=== PATIENT | male | born 1930 | race Caucasian/White ===

== ENCOUNTER 2018-11-19 14:39 | Inpatient (IN) ==
[2018-11-19] MEDS ORDERED: MAGNESIUM HYDROXIDE SUSP 30 ML UDC PO PRN (15:08)
[2018-11-19] MEDS ORDERED: BISACODYL 10 MG SUPP PR PRN (15:08)
[2018-11-19] MEDS ORDERED: NALOXONE HCL 0.4 MG/1 ML VIAL/CARP IV PRN (15:08)
[2018-11-19] MEDS ORDERED: ONDANSETRON INJ 2 MG/ML 2 ML VIAL IV PRN (15:08)
[2018-11-19] MEDS ORDERED: OXYCODONE HCL IR 5 MG TAB (IMMEDIATE RELEASE) PO PRN (15:08)
--- NOTE | 2018-11-19 16:05 | XRay Report ---
SINGLE VIEW CHEST CLINICAL HISTORY: Preoperative examination FINDINGS: 2 AP, portable, upright chest radiographs are obtained. No prior studies are available for comparison at the time of dictation. The examination is degraded by portable technique and patient ro tation. The heart is mildly enlarged end there is atherosclerotic calcification of the thoracic aort a. The pulmonary vasculature is noncongested. Nonspecific interstitial thickening is likely chronic. No airspace consolidation or large pleural effusion is identified. No pneumothorax is seen. The skele venessa structures are osteopenic. The bony thorax is grossly intact. Degenerative change and scoliosis a re noted in the thoracic spine. IMPRESSION: Mild cardiac enlargement with no active disease in the chest. Electronically signed by: Alfonso Partida M.D. 11/19/2018 4:03 PM
[2018-11-19] MEDS: LACTATED RINGER'S 1,000 ML IV SCH (17:13)
[2018-11-19 17:14] LABS: Basophils # (auto) 0.03 K/uL (0-0.2); Basophils % (auto) 0.7 %; Eosinophils # (auto) 0.07 K/uL (0-0.5); Eosinophils % (auto) 1.5 %; Hematocrit (blood only) 39.1 % (42-52); Hemoglobin 13.3 g/dL (14.0-18.0); Lymphocytes # (auto) 0.83 K/uL (1.2-3.4); Lymphocytes % (auto) 18.2 %; Mean Corpuscular Volume 95.8 fL (80-100); Mean Platelet Volume 9.7 fL (7.4-10.4); Monocytes # (auto) 0.51 K/uL (0.11-0.59); Monocytes % (auto) 11.2 %; Neutrophils # (auto) 3.13 K/uL (1.4-6.5); Neutrophils % (auto) 68.4 %; Platelet Count 188 K/uL (130-400); RDW Coefficient of Variation 12.9 % (11.5-14.5); RDW Standard Deviation 45.1 fL (36.4-46.3); Red Blood Count 4.08 M/uL (4.7-6.1); White Blood Count 4.57 K/uL (4.8-10.8)
--- NOTE | 2018-11-19 17:14 | Hospitalist Consultation ---
Date of Consultation November 19, 2018 Assessment & Plan (1) SVT (supraventricular tachycardia): Patient claims about angioplasty 30 years ago but when he really talks about was his heart matias went off to the races he was placed on verapamil and since that time is never had a problem since. Claims to still be taking verapamil at this point in time we will continue this medication He denies anginal heart failure symptoms His RCRI is 3.9% which is as low as it could be given his age, there is no contraindication to progressing toward surgery for surgical hip repair (2) Depressed: Patient typically takes Effexor and Remeron for his depression is to be maintained also for his anxiety (3) Constipation: Patient typically is constipated on a normal week only having a bowel movement every 3 to days we will institute Senokot therapy and offer him milk of magnesia when needed History of Present Illness Attending Physician: Pipe Gomez MD History of Present Illness Patient is admitted preoperatively for repair of a hip fracture left hip. Reportedly approximately 6 weeks ago the patient slipped while pushing a lawn roller and sustained pain in his leg. He then walked around his painful leg for approximately 6 weeks during that time we did a x-rays by his primary care physician and was referred to a surgeon and do boys were told him he should try to live with it to avoid perioperative risk given his age. Patient sought second opinion with Dr. Gomez who is agreeable to repair the patient's hip. Patient is fairly healthy for his age. States many years ago he had a rapid heartbeat was given verapamil and since that time is been very good condition otherwise he is no shortness of breath and lay flat at night does not have easy bruising or bleeding does not get significantly dyspneic with exertion his biggest problem seems to revolve around some depression and anxiety for which she is treats these with Remeron and Effexor Allergies Allergy/AdvReac Type Severity Reaction Status Date / Time citalopram [From Celexa] AdvReac Shakiness Verified 11/19/18 15:43 Patient History Medical History Constipation Depressed SVT (supraventricular tachycardia) Family History Mother Depression Social History Preferred Language: Ethiopian Communication Ability: Effective Beliefs That Will Affect Care: None Current Living Situation: Spouse Other Information That Helps Us Care for You: No Feels Safe at Home: Yes Safety Concerns: Feels Safe At This Time Smoking Status: Former smoker Hx Alcohol Use: Yes Alcohol type: wine Hx Substance Use: No Review of Systems Review of Systems: ROS: well nourished well developed. Patient is thin but appears healthy No double vision blurry vision No problems with speech or swallowing No palpitations, chest pain or pressure No Wheezing or breathing issues No abdominal pain nausea vomiting diarrhea changes in appetite or weight No burning urine urine frequency or changes in color focal left leg pain more distal in his femur, worse with weightbearing or walking No skin rashes or oral lesions No unusual bruising or bleeding is of a bruise on his left hand which he says is from working at home No focused back pain or numbness or loss of strength No changes in memory or confusion Physical Exam Physical Exam: The patient appeared well nourished and normally developed. Vital signs as documented. Head exam is unremarkable. normocephalic, atraumatic Neck is without jugular venous distension, thyromegaly, or lymphademopathy Lungs are clear to auscultation and percussion. Cardiac exam reveals Rhythm is regular. First and second heart sounds normal. Abdominal exam reveals normal bowel sounds, no masses, no organomegaly Extremities are nonedematous and both pedal pulses are present he does not have any shortening or rotation he does have pain to external rotation of his left hip Neurologic exam is A&Ox3, no focal deficits, strength is equal bilateral Psychologically seems neither anxious or depressed although is very open to discussing his anxiety and depression Skin is warm / Dry Results & Data Vital Signs (Past 12 Hours) Vital Signs Pulse Resp BP Pulse Ox 11/19/18 15:28 86 18 157/77 H 95 Chest x-rays only with mild cardiomegaly EKG shows right bundle branch block
[2018-11-19 17:29] LABS: INR 1.1 (0.9-1.1); Prothrombin Time 10.9 Seconds (9.0-12.0)
[2018-11-19 17:32] LABS: Albumin Level 3.7 gm/dl (3.4-5.0); BUN Creatinine Ratio 18.1 (10-20); Creatinine Clr Calc Pharmacy 41.5 ml/min; Est GFR (African American) 63.9; Est GFR (Non-African American) 55.2; Potassium 4.4 mmol/L (3.5-5.1)
[2018-11-19 17:35] LABS: Bilirubin,Total 0.4 mg/dl (0.2-1); Globulin 3.7 gm/dl (2.5-4.0); Total Protein 7.4 gm/dl (6.4-8.2)
[2018-11-19] MEDS ORDERED: SODIUM CHLORIDE 0.65% NA SOLN 45 ML (OCEAN) PRN (18:34)
--- NOTE | 2018-11-19 19:23 | Anesthesiology Consultation ---
Date of Service November 19, 2018 Patient is amenable to spinal anesthetic Assessment & Plan (1) Encounter for pre-operative examination: Chart Review Chart Review: Acceptable Risk for Surgery and Patient NOT seen in Pre Admission Testing Consults Requested none History Surgery Operation Date: 11/20/18 14:00 Proposed Procedures p Bipolar Hip Prosthesis - Pipe Gomez MD Height/Weight Height: 6 ft Weight: 66.6 kg Allergies Allergy/AdvReac Type Severity Reaction Status Date / Time citalopram [From Celexa] AdvReac Shakiness Verified 11/19/18 15:43 Medications Active Medications Generic Name Dose Route Start Last Admin Trade Name Freq PRN Reason Stop Dose Admin Lactated Ringer's 1,000 mls @ 80 mls/hr 11/19/18 15:15 11/19/18 17:13 Lr IV 12/19/18 15:14 80 mls/hr .[id number] BENITO Administration Past Medical History Medical History Constipation Depressed SVT (supraventricular tachycardia) Exercise / Class Metabolic Activity II 4-5 Yardwork/Stairs/Walk up hill (Patient injured himself mowing lawn) Past Family History Family History Mother Depression Past Anesthesia History No Hx of Anesthesia Complications History of PONV No Hx of PONV Social History Smoking Status: Former smoker Hx Alcohol Use: Yes Alcohol type: wine alcohol intake frequency: a few times a week Hx Substance Use: No Physical Exam Vital Signs Last Vital Signs Pulse 86 11/19/18 15:28 Resp 18 11/19/18 15:28 BP 157/77 H 11/19/18 15:28 Pulse Ox 95 11/19/18 15:28 ENMT Mouth: + dentures (Full upper, partial lower); no dentition abnormality Thyromental Distance: > or= 3.5 Finger Breadths Mallampati Class: II Neck normal visual inspection and + limited neck extension (mildly limited extension. no pain) Respiratory normal respiratory effort Auscultation: lungs clear to auscultation bilaterally Cardiovascular Rate/Rhythm: regular rate and regular rhythm Neurologic moves all extremities Psychiatric Orientation: alert Testing Laboratory Results Laboratory Tests 11/19/18 11/19/18 11/19/18 17:01 17:01 17:01 WBC 4.57 L Hgb 13.3 L Hct 39.1 L Plt Count 188 PT 10.9 INR 1.1 APTT 27.0 Sodium 139 Potassium 4.4 Chloride 104 Carbon Dioxide 33 H BUN 21 H Creatinine 1.18 Glucose 73 Electrocardiogram Date: 11/19/18 Findings: + NSR @ and + RBBB Chest X-Ray Date: 11/19/18 Findings: + NAD and + cardiomegaly (mild)
[2018-11-19] MEDS ORDERED: DOCUSATE SODIUM/SENNA 50/8.6MG TAB PO SCH (21:00)
--- NOTE | 2018-11-19 21:22 | History and Physical Report ---
DATE OF ADMISSION: 11/19/2018 CHIEF COMPLAINT: Left hip pain, discomfort, and inability to ambulate. HISTORY OF PRESENT ILLNESS: The patient is an 88-year-old gentleman from [place], who presents for evaluation and treatment of his left hip. He injured his left leg just about 6 weeks ago. He was using the side of his leg to move a lawnmower and kind of twisted and bent it awkwardly and he has had pain since then. He describes it has gotten worse over time. It took him a while and he eventually saw his medical doctor who did an x-ray which showed a femoral neck fracture. This was just about a week and a half to 2 weeks ago. He then was referred to an orthopedist and discussed operative and nonoperative treatment. He comes in today for a second opinion. He is now a little over 6 weeks out from his injury. The pain is actually just getting worse. He has not been able to walk and he has been using a walker to get around. No preexisting hip pain. He previously walked independently. PAST MEDICAL HISTORY: Significant for: 1. Depression. 2. Coronary artery disease status post angioplasty 30 years ago and just on aspirin. PAST SURGICAL HISTORY: Include angioplasty. ALLERGIES: None. CURRENT MEDICINES: 1. Verapamil SR 240 mg a day. 2. Mirtazapine 15 mg. 3. Venlafaxine 150 mg. 4. Vitamin D 25 mg. 5. Centrum Silver. 6. Ecotrin 162 mg a day. SOCIAL HISTORY: Significant for an 88-year-old gentleman. He is from [place]. He is and comes with his and daughter today. Rare alcohol intake. Does not smoke. FAMILY HISTORY: Significant for heart disease and bowel cancer. REVIEW OF SYSTEMS: Negative for diabetes, neurologic problems, vascular problems, bleeding disorders. No chest pain, no shortness of breath. No problems since his angioplasty 3 years ago. No history of DVT or PE. PHYSICAL EXAMINATION: GENERAL: Reveals he is a pleasant, thin, elderly male. Looks to be in reasonably good health. He is awake, alert, and oriented. HEENT: Benign. NECK: Supple. No lymphadenopathy. LUNGS: Clear to auscultation. HEART: Regular rate and rhythm. ABDOMEN: Soft, nontender, nondistended. EXTREMITIES: Grossly neurovascularly intact except as follows: Examination of the left lower extremity reveals a patient who can barely walk with the use of his walker. His left leg is significantly shortened about 2 cm and slightly externally rotated. He is neurologically intact. He has got no knee effusion. X-RAYS: We did review his x-rays from the outside dated 11/06/2018. It shows a slightly displaced femoral neck fracture and a bit of varus. Minimal arthritic change otherwise. We repeated films today which show further displacement of the femoral neck fracture. Now it is significantly displaced with malalignment. Diffuse osteopenia. Minimal arthritic change. ASSESSMENT: This is an 88-year-old gentleman relatively healthy with a displaced femoral neck fracture 6 weeks old. This is not going to heal and not going to do well. It is significantly displaced. No preexisting arthritis. PLAN: We talked about treatment options. The risks and benefits of conservative versus operative intervention were explained and he would really like to proceed with surgical treatment. We are going to take him to the operating room and do a left cemented bipolar hip arthroplasty. I think with his age and underlying health and some degree of little spasticity, I think total hip replacement would be a significant risk for instability. We are going to proceed with a bipolar hip arthroplasty. The risks and benefits of this procedure were explained to the patient including, but not limited to, DVT, PE, , infection, neurological injury, vascular injury, bleeding problem, pain, limited range of motion, stiffness, failure to relieve symptoms, incomplete relief of symptoms, need for further surgery in the future, fracture, leg length inequality, nerve palsy, etc. They understand and desire to proceed. Informed consent was obtained. I did tell him he is at increased risk of forming a nerve palsy due to his short 6-week duration and shortened leg. We will do the best we can to make his leg lengths equal. We are going to admit him to the hospital and get the hospitalist to see him and make sure he is cleared. We will plan on doing this tomorrow. In the meantime, we will do DVT prophylaxis including thigh-high TEDs and SCDs. We will put him on a baby aspirin postop twice a day.
[2018-11-19] MEDS: MIRTAZAPINE TAB 15 MG TAB PO SCH (22:08)
[2018-11-20] MEDS: ACETAMINOPHEN 325 MG TAB PO PRN (01:43)
[2018-11-20] MEDS: LACTATED RINGER'S 1,000 ML IV SCH ×2 (05:10→17:57)
[2018-11-20] MEDS ORDERED: CEFAZOLIN 2000MG 2,000 MG/15 ML SYR IV SCH (06:00)
[2018-11-20] MEDS: VENLAFAXINE HCL XR 150 MG CAPXR PO SCH (08:41)
[2018-11-20] MEDS: VERAPAMIL HCL 240 MG TABCR PO SCH (08:42)
--- NOTE | 2018-11-20 08:47 | History & Physical Bridge Note ---
Date of Service November 20, 2018 History & Physical Bridge Note I have examined the patient, reviewed the History & Physical and in the interval since the performance of the History & Physical I have noted the following changes of clinical significance: no changes noted
--- NOTE | 2018-11-20 09:06 | Progress Note ---
DATE: 11/20/2018 SUBJECTIVE: An 88-year-old gentleman admitted yesterday with a displaced femoral neck fracture 6 weeks old. There has been no interval change in his symptoms. He continues to be limited by left hip pain. No new complaints. OBJECTIVE: VITAL SIGNS: Temperature 37.0. Vital signs stable. GENERAL: Physical examination shows a pleasant elderly male. He is lying in bed, looks pretty comfortable. EXTREMITIES: Examination of the left leg reveals it to be shortened and externally rotated. He is about 2 cm short on this side. He has got some pain with hip motion. No knee effusion. He is neurologically intact. LABORATORY DATA: Hemoglobin is 13.3. Hematocrit 39.1. Electrolytes are stable. ASSESSMENT: An 88-year-old gentleman 6 weeks out from an injury with a displaced femoral neck fracture which is developed progressive deformity over the past 6 weeks. PLAN: He has been admitted and seen by the hospitalist and medically optimized. We are going to take him to the operating room and do a left cemented bipolar hip arthroplasty this afternoon. The risks and benefits of this procedure have been explained and they understand. Him and his family desire to proceed. We will continue DVT prophylaxis including TEDs, SCDs, and begin aspirin postoperatively.
[2018-11-20 10:05] LABS: Hematocrit (blood only) 37.1 % (42-52); Hemoglobin 12.7 g/dL (14.0-18.0); Mean Corpuscular Hgb Conc 34.2 g/dL (32-36); Mean Corpuscular Volume 94.9 fL (80-100); Mean Platelet Volume 9.9 fL (7.4-10.4); Platelet Count 190 K/uL (130-400); RDW Coefficient of Variation 12.7 % (11.5-14.5); RDW Standard Deviation 43.8 fL (36.4-46.3); Red Blood Count 3.91 M/uL (4.7-6.1); White Blood Count 5.07 K/uL (4.8-10.8)
[2018-11-20 10:37] LABS: BUN Creatinine Ratio 17.7 (10-20); Potassium 4.3 mmol/L (3.5-5.1)
[2018-11-20] MEDS ORDERED: POLYETHYLENE (MIRALAX) 17 GM PACK PO PRN (11:50)
--- NOTE | 2018-11-20 12:25 | Hospitalist Progress Note ---
Date of Service November 20, 2018 Assessment & Plan (1) Femoral neck fracture: - Injury initially occurred ~6 weeks ago; outpatient XR showed femoral neck fracture. - Plan for left cemented bipolar hip arthroplasty this afternoon. - Pain control and DVT ppx per primary team. - Monitor CBC qAM following procedure. - PT/OT evaluation per ortho. (2) SVT (supraventricular tachycardia): - H/o SVT, now well controlled with home Verapamil. - Denies acute chest pain or coronary symptoms. - Continue Verapamil as prescribed. - His RCRI is 3.9% which is as low as it could be given his age, there is no contraindication to progressing toward surgery for surgical hip repair. (3) Depressed: - Continue Effexor and Remeron as prsecribed. (4) Constipation: - Pt. reports he rarely has BMs as inpatient; last BM was 2 days ago. - Increased Senokot S to 2 tab BID; Miralax daily prn -- may need to schedule med. (5) Osteoporosis: - In setting of recent fall. - Vit D level pending in the morning. (6) DVT prophylaxis: - Holding for procedure. Dispo: Med/surg; will continue to follow. Supervising Physician Co-Signing Physician Notes PA Supervision Note: I did not personally see or examine the patient today, but I verified all perdue points of CAROLYNE Fraser's assessment and plan with the following exceptions/additions: None Subjective Pt. is stable overall. He didn't sleep well last night. Pain in left hip well controlled, did require Tylenol dose last evening. Pain is rated as a 3-4/10. Last BM was 2 days ago. Denies urinary retention. Review of Systems Review of Systems: All systems reviewed & are unremarkable except as noted in HPI & below Constitutional: + fatigue and + weakness; no fever and no chills Respiratory: no cough, no dyspnea, no dyspnea on exertion and no wheezing Cardiovascular: no chest pain, no palpitations and no edema Gastrointestinal: + constipation; no abdominal pain, no nausea and no vomiting Genitourinary: no difficulty urinating Musculoskeletal: + joint pain (Left hip ); no back pain Integumentary: no non-healing lesions Allergy / Immunological: no rash Physical Exam Physical Exam: General: Resting comfortably in no apparent distress HEENT: NC/AT; PERRLA with EOMI; [place] conjunctiva, MMM. No erythema of posterior pharynx Neck: Supple and nontender Cardiac: RRR Lungs: CTA bilaterally Abdomen: Bowel normoactive X 4; Nontender to palpation Extremities: Warm. No edema present Neuro: No focal weakness Skin: No rash Results & Data Vital Signs (Past 12 Hours) Vital Signs Temp Pulse Resp BP Pulse Ox 11/20/18 07:05 37 C 88 16 152/84 H 95 Laboratory Results 11/20/18 11/20/18 11/19/18 Range/Units 09:32 09:32 17:01 WBC 5.07 (4.8-10.8) K/uL RBC 3.91 L (4.7-6.1) M/uL Hgb 12.7 L (14.0-18.0) g/dL Hct 37.1 L (42-52) % MCV 94.9 (80-100) fL MCH 32.5 (25-34) pg MCHC 34.2 (32-36) g/dL RDW Std Deviation 43.8 (36.4-46.3) fL RDW Coeff of Timothy 12.7 (11.5-14.5) % Plt Count 190 (130-400) K/uL MPV 9.9 (7.4-10.4) fL Immature Gran % (Auto) % Neut % (Auto) % Lymph % (Auto) % [place] % (Auto) % Eos % (Auto) % Baso % (Auto) % Immature Gran # (Auto) (0.00-0.02) K/uL Neut # (Auto) (1.4-6.5) K/uL Lymph # (Auto) (1.2-3.4) K/uL Clinton # (Auto) (0.11-0.59) K/uL Eos # (Auto) (0-0.5) K/uL Baso # (Auto) (0-0.2) K/uL PT (9.0-12.0) Seconds INR (0.9-1.1) APTT (21.0-31.0) Seconds PTT Ratio Sodium 141 139 (136-145) mmol/L Potassium 4.3 4.4 (3.5-5.1) mmol/L Chloride 105 104 (98-107) mmol/L Carbon Dioxide 32 33 H (21-32) mmol/L Anion Gap 5.0 2.0 L (3-11) BUN 17 21 H (7-18) mg/dl Creatinine 0.98 1.18 (0.6-1.4) mg/dl Est Cr Clr Drug Dosing 50.0 41.5 ml/min Est GFR ( Amer) 80.0 63.9 Est GFR (Non-Af Amer) 69.0 55.2 BUN/Creatinine Ratio 17.7 18.1 (10-20) Glucose 84 73 (70-99) mg/dl Calcium 9.0 9.0 (8.5-10.1) mg/dl Magnesium 2.0 (1.8-2.4) mg/dl Total Bilirubin 0.4 (0.2-1) mg/dl AST 25 (15-37) U/L ALT 24 (12-78) U/L Alkaline Phosphatase 36 L (45-117) U/L Total Protein 7.4 (6.4-8.2) gm/dl Albumin 3.7 (3.4-5.0) gm/dl Globulin 3.7 (2.5-4.0) gm/dl Albumin/Globulin Ratio 1.0 (0.9-2) Blood Type Antibody Screen 11/19/18 11/19/18 11/19/18 Range/Units 17:01 17:01 17:01 WBC 4.57 L (4.8-10.8) K/uL RBC 4.08 L (4.7-6.1) M/uL Hgb 13.3 L (14.0-18.0) g/dL Hct 39.1 L (42-52) % MCV 95.8 (80-100) fL MCH 32.6 (25-34) pg MCHC 34.0 (32-36) g/dL RDW Std Deviation 45.1 (36.4-46.3) fL RDW Coeff of Timothy 12.9 (11.5-14.5) % Plt Count 188 (130-400) K/uL MPV 9.7 (7.4-10.4) fL Immature Gran % (Auto) 0.0 % Neut % (Auto) 68.4 % Lymph % (Auto) 18.2 % Clinton % (Auto) 11.2 % Eos % (Auto) 1.5 % Baso % (Auto) 0.7 % Immature Gran # (Auto) 0.00 (0.00-0.02) K/uL Neut # (Auto) 3.13 (1.4-6.5) K/uL Lymph # (Auto) 0.83 L (1.2-3.4) K/uL Clinton # (Auto) 0.51 (0.11-0.59) K/uL Eos # (Auto) 0.07 (0-0.5) K/uL Baso # (Auto) 0.03 (0-0.2) K/uL PT 10.9 (9.0-12.0) Seconds INR 1.1 (0.9-1.1) APTT 27.0 (21.0-31.0) Seconds PTT Ratio 1.0 Sodium (136-145) mmol/L Potassium (3.5-5.1) mmol/L Chloride (98-107) mmol/L Carbon Dioxide (21-32) mmol/L Anion Gap (3-11) BUN (7-18) mg/dl Creatinine (0.6-1.4) mg/dl Est Cr Clr Drug Dosing ml/min Est GFR ( Amer) Est GFR (Non-Af Amer) BUN/Creatinine Ratio (10-20) Glucose (70-99) mg/dl Calcium (8.5-10.1) mg/dl Magnesium (1.8-2.4) mg/dl Total Bilirubin (0.2-1) mg/dl AST (15-37) U/L ALT (12-78) U/L Alkaline Phosphatase (45-117) U/L Total Protein (6.4-8.2) gm/dl Albumin (3.4-5.0) gm/dl Globulin (2.5-4.0) gm/dl Albumin/Globulin Ratio (0.9-2) Blood Type O Positive Antibody Screen NEGATIVE
[2018-11-20] MEDS ORDERED: PROPOFOL IV EMULSION 10 MG/ML 20 ML VIAL IV ONE ×2 (13:24→15:02)
[2018-11-20] MEDS ORDERED: fentaNYL citrate 100 MCG/2 ML VIAL ONE (13:27)
[2018-11-20] MEDS ORDERED: BUPIVACAINE 0.5 % 5 MG/1 ML PF 10ML VIAL ONE (14:29)
[2018-11-20] MEDS ORDERED: BACITRACIN INJ 50,000 UNIT VIAL ONE (14:31)
[2018-11-20] MEDS ORDERED: BUPIVACAINE/EPINEPHRINE 0.5% MPF 1:200,000 30 ML VIAL ONE ×2 (14:31→14:53)
[2018-11-20] MEDS ORDERED: fentaNYL citrate 100 MCG/2 ML VIAL IV PRN (14:42)
[2018-11-20] MEDS ORDERED: ONDANSETRON INJ 2 MG/ML 2 ML VIAL IV PRN (14:42)
[2018-11-20] MEDS ORDERED: ATROPINE SULFATE 0.1 MG/ML 10ML SYR IV PRN (14:42)
[2018-11-20] MEDS ORDERED: ePHEDrine sulfate 50 MG/ML AMP IV PRN (14:42)
[2018-11-20] MEDS ORDERED: ONDANSETRON INJ 2 MG/ML 2 ML VIAL ONE (16:15)
--- NOTE | 2018-11-20 16:30 | Post Operative Brief Note ---
Immediate Post Op Note v1 Date of Surgery November 20, 2018 Pre & Post Diagnosis Operation Date: 11/20/18 14:00 Pre-Op Diagnosis: Displaced Left Femoral Neck Fracture Post-Op Diagnosis: Displaced Left Femoral Neck Fracture Procedure Operation Date: 11/20/18 14:00 Actual Procedures p Left Bipolar Hip Prosthesis--Cemented(Left) - Pipe Gomez MD Surgeon Pipe Gomez MD Stabilizing Machine Operator Radha, PAC Estimated Blood Loss 200 Findings Consistent with Post-Op Diagnosis Fluids 2200 cc Specimens Left Femoral HEad Drains Menjivar Catheter (A 16 Icelandic menjivar catheter was inserted by CAROLYNE Lopez, without difficulty, clear yellow urine obtained, output to be monitored by Anesthesia.) Anesthesia Type Spinal MAC Complications none Disposition Accompanied Patient To Recovery: Yes Disposition: Recovery Room
--- NOTE | 2018-11-20 17:03 | Anesthesiology Progress Note ---
Date of Service November 20, 2018 Anesthesia Post Procedure Vital Signs Vital Signs: Temp Pulse Pulse Resp BP BP Pulse Ox 11/20/18 16:50 75 16 148/77 H 100 11/20/18 16:40 77 19 136/83 100 11/20/18 16:34 36.1 C L 82 16 135/75 97 11/20/18 13:49 36.6 C 80 18 167/89 H 94 11/20/18 07:05 37 C 88 16 152/84 H 95 11/19/18 23:58 37.3 C 14 148/79 H 94 Transfer of Care Handoff Completed per policy Notes Mental Status: alert / awake / arousable and participated in evaluation Nausea / Vomiting: adequately controlled Pain: adequately controlled Airway Patency, RR, SpO2: stable & adequate BP & HR: stable & adequate Hydration State: stable & adequate Neuraxial Anesthesia: was administered and sensory block is resolving Anesthetic Complications: no major complications apparent and Pt Satisfied with anesthetic care
--- NOTE | 2018-11-20 17:45 | XRay Report ---
XR hip LT min 2V HISTORY: 88 years-old Male Post-Operative implant position left hip total joint arthroplasty COMPARISON: None available TECHNIQUE: 2 views of the left hip FINDINGS: Left hip total joint arthroplasty demonstrates satisfactory alignment. Expected postsurgical soft tis tiff swelling and deep tissue air with lateral skin lalito. No acute fracture, dislocation or retaine d foreign body. Peripheral arterial calcifications are noted. IMPRESSION: Left hip total joint arthroplasty demonstrates satisfactory alignment. The above report was generated using voice recognition software. It may contain grammatical, syntax o r spelling errors. Electronically signed by: Bandar Herbert M.D. 11/20/2018 5:44 PM
[2018-11-20] MEDS ORDERED: HYDROmorphone INJ 0.5 MG/0.5 ML SYR IV PRN (17:52)
[2018-11-20] MEDS ORDERED: MAGNESIUM HYDROXIDE SUSP 30 ML UDC PO PRN (17:52)
[2018-11-20] MEDS ORDERED: BISACODYL 10 MG SUPP PR PRN (17:52)
[2018-11-20] MEDS ORDERED: OXYCODONE HCL IR 5 MG TAB (IMMEDIATE RELEASE) PO PRN (17:52)
[2018-11-20] MEDS ORDERED: NALOXONE HCL 0.4 MG/1 ML VIAL/CARP IV PRN (17:52)
[2018-11-20] MEDS: SENNA 8.6 MG TAB PO SCH (21:56)
[2018-11-20] MEDS: DOCUSATE SODIUM/SENNA 50/8.6MG TAB PO SCH (21:56)
[2018-11-20] MEDS: MIRTAZAPINE TAB 15 MG TAB PO SCH (21:57)
[2018-11-20] MEDS: ASPIRIN 81 MG ECTAB PO SCH (21:59)
--- NOTE | 2018-11-20 23:48 | Operative Report ---
DATE OF OPERATION: 11/20/2018 SURGEON: Pipe Gomez MD DYE JIG OPERATOR: CAROLYNE Venegas PREOPERATIVE DIAGNOSIS: Left subacute displaced femoral neck fracture. POSTOPERATIVE DIAGNOSIS: Left subacute displaced femoral neck fracture. PROCEDURE PERFORMED: Left cemented bipolar hip arthroplasty. COMPLICATIONS: None. ESTIMATED BLOOD LOSS: 200 mL. FLUID REPLACEMENT: 2200 mL crystalloid fluid replacement. ANESTHESIA: Spinal. DRAINS: None. SPECIMENS: Left femoral head sent for pathology. OPERATIVE INDICATIONS: The patient is an 88-year-old fairly active gentleman who sustained an injury about 6 weeks ago while doing some yard work. He had pain at that time and had difficulty ambulating. He put up with it for a couple of weeks and then presented to his family doctor who got an x-ray and diagnosed with femoral neck fracture. He was seen and evaluated and treated conservatively for a period of time, but he continued to have persistent progressive pain and the x-ray show further displacement of the hip fracture. The patient was indicated for operative intervention. The patient's hip was significantly short about 2 cm due to the delayed nature of this surgery. OPERATIVE IMPLANTS: Operative implants consisted of: 1. A Biomet generation 4 cemented polished size 15 standard offset femoral stem. 2. A +0/28 mm articular ball. 3. A 58 mm bipolar shell and liner. 4. A size 16 centralizer. 5. A large cement restrictor. OPERATIVE PROCEDURE: The patient was taken to the operating room, identified and placed on the operative table in supine position. All contact areas were appropriately padded. IV antibiotics were provided by anesthesia team. A spinal anesthetic had been implemented in the holding area. Culver catheter was placed. The patient was then placed in the right lateral decubitus position. An axillary roll was placed. Stulberg hip positioner was used for positioning. The left hip and leg were then prepped and draped in the usual sterile fashion. A posterolateral approach of the left hip was then performed through a curvilinear incision centered over the greater trochanter. Sharp dissection was carried through the subcutaneous tissue down to the level of the IT band and gluteal fascia. The IT band and gluteal fascia were incised longitudinally in line with the skin incision. The underlying greater trochanteric bursa was excised. The piriformis and external rotators were tagged and taken off the posterior aspect of the hip joint capsule. The posterior hip capsule was then incised and tagged for later repair. Hip was then internally rotated. Femoral neck osteotomy cut was made at the level for a 0 neck. The femoral head was removed. The acetabulum was sized to a size 58. The acetabulum was cleaned of all debris. Attention was then drawn to the femur. The proximal femur was entered with cookie cutter followed by canal finder and a lateralizing reamer. The bone was extremely porous. I broached starting with a size 7 progressing up to a 15, got a good fit with a 15. I then trialed the hip. The high offset stem was just too tight. The 15 standard stem with a 0 neck full extension and external rotation and flexion to 90 degrees, internal rotation to over 50 degrees. The patient's hip joint capsule was a little bit contracted. We elected to place these implants. All trial implants were removed. A large cement restrictor was placed. A double batch of Palacos G cement was mixed. The canal was then injected with the cement and a size 15 standard offset femoral stem was placed. I did place some additional anteversion to maximize stability. Once the cement hardened, a 0/28 mm articular ball with a 58 mm bipolar shell and liner were placed. Hip was located and once again found to be stable. Attention was then drawn toward closing. The wound was irrigated with copious amounts of pulsatile lavage solution. The posterior capsule was then repaired with #2 Ti-Cron suture in a [id number] fashion. The external rotators were repaired to the posterior aspect of the hip abductors with #2 Ti-Cron suture. The IT band and gluteal fascia were then closed with #1 PDS suture in a running fashion. The subcutaneous tissue was then closed with 2 layers with the deep layer with #1 Vicryl suture and the subcutaneous tissue with 2-0 Dexon suture in buried interrupted fashion. The skin was closed with skin lalito. Leg was then cleaned and dried and a sterile dressing of Xeroform, 4 x 4, sterile ABD pad, and foam tape was applied. The patient was then transferred to the recovery room in stable condition. The patient tolerated the procedure well with no complication. All needle and sponge counts were correct at the end of the operation. I attest to the content of the Intraoperative Record and any orders documented therein. Any exceptions are noted below. RONAK
[2018-11-21] MEDS: ACETAMINOPHEN 325 MG TAB PO PRN ×2 (00:15→08:10)
[2018-11-21] MEDS: CEFAZOLIN 1000MG 1,000 MG/7.5 ML SYR IV SCH ×2 (00:17→08:08)
[2018-11-21] MEDS: LACTATED RINGER'S 1,000 ML IV SCH (05:01)
[2018-11-21 07:29] LABS: Basophils # (auto) 0.02 K/uL (0-0.2); Basophils % (auto) 0.3 %; Eosinophils # (auto) 0.02 K/uL (0-0.5); Eosinophils % (auto) 0.3 %; Hematocrit (blood only) 34.9 % (42-52); Hemoglobin 11.7 g/dL (14.0-18.0); Lymphocytes # (auto) 0.85 K/uL (1.2-3.4); Mean Corpuscular Hgb Conc 33.5 g/dL (32-36); Mean Corpuscular Volume 95.1 fL (80-100); Mean Platelet Volume 10.3 fL (7.4-10.4); Monocytes # (auto) 0.76 K/uL (0.11-0.59); Monocytes % (auto) 9.9 %; Neutrophils # (auto) 6.05 K/uL (1.4-6.5); Neutrophils % (auto) 78.5 %; Platelet Count 188 K/uL (130-400); RDW Coefficient of Variation 12.7 % (11.5-14.5); RDW Standard Deviation 43.9 fL (36.4-46.3); Red Blood Count 3.67 M/uL (4.7-6.1)
[2018-11-21 07:56] LABS: BUN Creatinine Ratio 17.2 (10-20); Calcium 8.5 mg/dl (8.5-10.1); Creatinine Clr Calc Pharmacy 44.6 ml/min; Est GFR (African American) 69.6; Potassium 4.2 mmol/L (3.5-5.1)
[2018-11-21] MEDS: VERAPAMIL HCL 240 MG TABCR PO SCH (08:08)
[2018-11-21] MEDS: DOCUSATE SODIUM/SENNA 50/8.6MG TAB PO SCH ×2 (08:09→20:18)
[2018-11-21] MEDS: ASPIRIN 81 MG ECTAB PO SCH ×2 (08:09→20:18)
[2018-11-21] MEDS: VENLAFAXINE HCL XR 150 MG CAPXR PO SCH (08:09)
--- NOTE | 2018-11-21 08:59 | Progress Note ---
DATE: 11/21/2018 SUBJECTIVE: An 88-year-old gentleman postop day 1 from a left cemented bipolar hip arthroplasty for fracture. He is doing pretty well. He has quite a bit of discomfort with walking, but pretty comfortable in bed. Denies any chest pain or shortness of breath. Not feeling dizzy or lightheaded. OBJECTIVE: VITAL SIGNS: Temperature 36.3. Vital signs stable. GENERAL: Physical examination shows a pleasant 88-year-old male. He is sitting up in his bedside chair eating breakfast. Looks reasonably comfortable. EXTREMITIES: Examination of the left hip reveals the dressing to be clean, dry and intact. Hip is located. He can dorsiflex and plantarflex his foot appropriately. He is neurologically intact. LABORATORY DATA: Hemoglobin 11.7, hematocrit 34.9. Electrolytes are stable. ASSESSMENT: An 88-year-old gentleman postop day 1 from a left bipolar hip arthroplasty for fracture, doing pretty well. He is really refusing anything other than Tylenol for pain. PLAN: 1. DVT prophylaxis including thigh-high TEDs, SCDs, and aspirin twice a day. 2. PT/OT. Weight bear as tolerated. Left total hip protocol. 3. Pain control, doing pretty well with current pain regimen. I am fine with him sticking with Tylenol, but he is going to have a little pain for a while. 4. Disposition: He is hoping to be discharged to home. We will have social service look into and maybe some home health.
--- NOTE | 2018-11-21 11:33 | Anesthesiology Progress Note ---
Date of Service November 21, 2018 Anesthesia Post Procedure Vital Signs Vital Signs: Temp Pulse Pulse Resp BP BP Pulse Ox 11/21/18 07:15 36.3 C L 93 H 20 135/58 L 94 11/20/18 22:50 37.3 C 80 18 141/74 H 94 11/20/18 21:58 36.8 C 80 16 151/78 H 94 11/20/18 20:46 37.3 C 74 16 146/78 H 99 11/20/18 20:01 36.8 C 74 16 146/75 H 99 11/20/18 17:58 36.6 C 74 16 153/74 H 99 11/20/18 17:10 36.6 C 72 21 135/77 100 11/20/18 17:00 36.6 C 80 21 135/76 97 11/20/18 16:50 75 16 148/77 H 100 11/20/18 16:40 77 19 136/83 100 11/20/18 16:34 36.1 C L 82 16 135/75 97 11/20/18 16:30 11/20/18 13:49 36.6 C 80 18 167/89 H 94 Pulse Ox 11/21/18 07:15 11/20/18 22:50 11/20/18 21:58 11/20/18 20:46 11/20/18 20:01 11/20/18 17:58 11/20/18 17:10 11/20/18 17:00 11/20/18 16:50 11/20/18 16:40 11/20/18 16:34 11/20/18 16:30 98 11/20/18 13:49 Pain Intensity Left Hip: Pain Intensity: 3 Notes Mental Status: alert / awake / arousable and participated in evaluation Nausea / Vomiting: adequately controlled Pain: adequately controlled Airway Patency, RR, SpO2: stable & adequate BP & HR: stable & adequate Hydration State: stable & adequate Neuraxial Anesthesia: was administered and sensory block resolved Anesthetic Complications: no major complications apparent and Pt Satisfied with anesthetic care
[2018-11-21] MEDS ORDERED: MAGNESIUM HYDROXIDE SUSP 30 ML UDC PO PRN (14:26)
--- NOTE | 2018-11-21 15:42 | Hospitalist Progress Note ---
Date of Service November 21, 2018 Assessment & Plan (1) Femoral neck fracture: - Injury initially occurred ~6 weeks ago; outpatient XR showed femoral neck fracture. - Plan for left cemented bipolar hip arthroplasty on 11/20, POD#1. - Pain control and DVT ppx per primary team. - Monitor CBC qAM to evaluate for blood loss. - PT/OT evaluation. (2) SVT (supraventricular tachycardia): - H/o SVT; well controlled with home Verapamil. - Denies acute chest pain or coronary symptoms. - Continue Verapamil as prescribed. (3) Depressed: - Continue Effexor and Remeron as prescribed. (4) Constipation: - Pt. reports he rarely has BMs as inpatient. - Senokot S 2 tab BID; Miralax q6hr scheduled until pt. has a BM. (5) Osteoporosis: - In setting of recent fall. - Vit D level pending. (6) DVT prophylaxis: - Aspirin 81 mg BID. Dispo: Med/surg; will continue to follow. Subjective Pt. is doing well. He does report being "psychologically distressed" due to limitation on activity in setting of recent fracture/surgery. Has not had a BM but is passing gas. Denies urinary retention. Review of Systems Review of Systems: All systems reviewed & are unremarkable except as noted in HPI & below Constitutional: no fever, no chills, no fatigue and no weakness Respiratory: no cough, no dyspnea and no dyspnea on exertion Cardiovascular: no chest pain, no palpitations and no edema Gastrointestinal: no abdominal pain, no nausea, no vomiting, no constipation and no diarrhea/loose stools Genitourinary: no difficulty urinating Musculoskeletal: no back pain and no joint pain Integumentary: no non-healing lesions Allergy / Immunological: no rash Physical Exam Physical Exam: General: Resting comfortably in no apparent distress HEENT: NC/AT; PERRLA with EOMI; [place] conjunctiva, MMM. No erythema of posterior pharynx Neck: Supple and nontender Cardiac: RRR Lungs: CTA bilaterally Abdomen: Bowel normoactive X 4; Nontender to palpation Extremities: Warm. No edema present Neuro: No focal weakness Skin: No rash Results & Data Vital Signs (Past 12 Hours) Vital Signs Temp Pulse Resp BP Pulse Ox 11/21/18 15:05 37.0 C 81 17 121/58 L 95 11/21/18 07:15 36.3 C L 93 H 20 135/58 L 94 Laboratory Results 11/21/18 11/21/18 11/21/18 Range/Units 06:42 06:42 06:42 WBC 7.70 (4.8-10.8) K/uL RBC 3.67 L (4.7-6.1) M/uL Hgb 11.7 L (14.0-18.0) g/dL Hct 34.9 L (42-52) % MCV 95.1 (80-100) fL MCH 31.9 (25-34) pg MCHC 33.5 (32-36) g/dL RDW Std Deviation 43.9 (36.4-46.3) fL RDW Coeff of Timothy 12.7 (11.5-14.5) % Plt Count 188 (130-400) K/uL MPV 10.3 (7.4-10.4) fL Immature Gran % (Auto) 0.0 % Neut % (Auto) 78.5 % Lymph % (Auto) 11.0 % Roosevelt % (Auto) 9.9 % Eos % (Auto) 0.3 % Baso % (Auto) 0.3 % Immature Gran # (Auto) 0.00 (0.00-0.02) K/uL Neut # (Auto) 6.05 (1.4-6.5) K/uL Lymph # (Auto) 0.85 L (1.2-3.4) K/uL Roosevelt # (Auto) 0.76 H (0.11-0.59) K/uL Eos # (Auto) 0.02 (0-0.5) K/uL Baso # (Auto) 0.02 (0-0.2) K/uL Sodium 138 (136-145) mmol/L Potassium 4.2 (3.5-5.1) mmol/L Chloride 103 (98-107) mmol/L Carbon Dioxide 30 (21-32) mmol/L Anion Gap 5.0 (3-11) BUN 19 H (7-18) mg/dl Creatinine 1.10 (0.6-1.4) mg/dl Est Cr Clr Drug Dosing 44.6 ml/min Est GFR ( Amer) 69.6 Est GFR (Non-Af Amer) 60.0 BUN/Creatinine Ratio 17.2 (10-20) Glucose 81 (70-99) mg/dl Calcium 8.5 (8.5-10.1) mg/dl Vit D 1,25-Dihyd Total Pending 1,25 Dihydroxy Vit D2 Pending 1,25 Dihydroxy Vit D3 Pending
[2018-11-21] MEDS: MIRTAZAPINE TAB 15 MG TAB PO SCH (20:17)
[2018-11-21] MEDS: SENNA 8.6 MG TAB PO SCH (20:18)
[2018-11-22 06:50] LABS: Hematocrit (blood only) 32.9 % (42-52); Hemoglobin 11.2 g/dL (14.0-18.0); Mean Corpuscular Volume 95.1 fL (80-100); Mean Platelet Volume 9.8 fL (7.4-10.4); Platelet Count 166 K/uL (130-400); RDW Coefficient of Variation 12.8 % (11.5-14.5); RDW Standard Deviation 44.6 fL (36.4-46.3); Red Blood Count 3.46 M/uL (4.7-6.1); White Blood Count 9.34 K/uL (4.8-10.8)
[2018-11-22 07:15] LABS: BUN Creatinine Ratio 19.3 (10-20); Calcium 8.6 mg/dl (8.5-10.1); Creatinine Clr Calc Pharmacy 48.5 ml/min; Est GFR (African American) 77.2; Est GFR (Non-African American) 66.6; Potassium 4.2 mmol/L (3.5-5.1)
--- NOTE | 2018-11-22 08:59 | Progress Note ---
DATE: 11/22/2018 SUBJECTIVE: An 88-year-old gentleman postop day 2 from a left cemented bipolar hip arthroplasty for fracture. Seems to be doing okay. Not any pain at all while lying in bed. No chest pain or shortness of breath. Not feeling dizzy or lightheaded. OBJECTIVE: VITAL SIGNS: Temperature 36.5. Vital signs stable. GENERAL: Reveals a pleasant elderly male. I had to wake him this morning. Seems just a little bit confused, but I did just wake him. EXTREMITIES: Examination of left hip reveals incision to be clean, dry and intact. Leg lengths were equal. Hip is located. He is neurologically intact. ASSESSMENT: An 88-year-old gentleman postop day 2 from a left bipolar hip arthroplasty for fracture. Orthopedically appears stable. PLAN: 1. DVT prophylaxis including thigh-high TEDs, SCDs, and aspirin twice a day. 2. PT/OT. Weight bear as tolerated. Left total hip protocol. 3. Pain control. Doing well with current pain regimen. Really refusing to take anything other than Tylenol which is certainly acceptable. 4. Disposition: He is orthopedically okay for discharge. It is unclear to me whether he is going to go home or to rehab. I certainly think he is likely okay to go home as well and he has got social support.
[2018-11-22] MEDS ORDERED: SOD PHOSPHATE/SOD BIPHOSPHATE ENEMA 132 ML BTL PR STA (09:51)
[2018-11-22] MEDS: VERAPAMIL HCL 240 MG TABCR PO SCH (09:56)
[2018-11-22] MEDS: ASPIRIN 81 MG ECTAB PO SCH ×2 (09:56→21:02)
[2018-11-22] MEDS: DOCUSATE SODIUM/SENNA 50/8.6MG TAB PO SCH ×2 (09:56→21:01)
[2018-11-22] MEDS: VENLAFAXINE HCL XR 150 MG CAPXR PO SCH (09:56)
--- NOTE | 2018-11-22 11:58 | Hospitalist Progress Note ---
Date of Service November 22, 2018 Assessment & Plan (1) Femoral neck fracture: - Injury initially occurred ~6 weeks ago; outpatient XR showed femoral neck fracture. - Plan for left cemented bipolar hip arthroplasty on 11/20, POD#2. - Pain control and DVT ppx per primary team. - Monitor CBC qAM. - PT/OT evaluation - discharge to home vs. rehab, case management following. (2) SVT (supraventricular tachycardia): - H/o SVT; well controlled with home Verapamil. - Denies acute chest pain or coronary symptoms. - Continue Verapamil as prescribed. (3) Depressed: - Continue Effexor and Remeron as prescribed. (4) Constipation: - Has not had a BM yet. - Senokot S 2 tab BID; Miralax q6hr scheduled. - Will give enema this morning and evaluate for improvement. (5) Osteoporosis: - In setting of recent fall. - Vit D level pending. (6) Elevated blood pressure reading: - SBP has been elevated, ranging from 130-170's. - Continue home Verapamil. - May require additional agent if BP remains elevated; recommend follow up with PCP after discharge. (7) DVT prophylaxis: - Aspirin 81 mg BID. Dispo: Pt. is medically stable, will sign off. Please call with any questions. Supervising Physician Co-Signing Physician Notes PA Supervision Note: I did not personally see or examine the patient today, but I verified all perdue points of CAROLYNE Fraser's assessment and plan with the following exceptions/additions: None Subjective Pt. is doing well overall. Pain in left hip controlled. Has not had a BM yet but is passing gas. He reports having a "stool ball" at his rectum -- will give enema this morning. Pt. will be discharged to home. Review of Systems Review of Systems: All systems reviewed & are unremarkable except as noted in HPI & below Constitutional: no fever, no chills, no fatigue, no weakness and no anorexia Respiratory: no cough, no dyspnea, no dyspnea on exertion and no wheezing Cardiovascular: no chest pain, no palpitations and no edema Gastrointestinal: + constipation; no abdominal pain and no nausea Genitourinary: no difficulty urinating Musculoskeletal: no back pain and no joint pain Integumentary: no non-healing lesions Allergy / Immunological: no rash Physical Exam Physical Exam: General: Resting comfortably in no apparent distress HEENT: NC/AT; PERRLA with EOMI; [place] conjunctiva, MMM. No erythema of posterior pharynx Neck: Supple and nontender Cardiac: RRR Lungs: CTA bilaterally Abdomen: Bowel normoactive X 4; Nontender to palpation Extremities: Warm. No edema present Neuro: No focal weakness Skin: No rash Results & Data Vital Signs (Past 12 Hours) Vital Signs Temp Pulse Resp BP Pulse Ox 11/22/18 07:13 36.5 C 86 15 173/75 H 97 Laboratory Results 11/22/18 11/22/18 Range/Units 06:32 06:32 WBC 9.34 (4.8-10.8) K/uL RBC 3.46 L (4.7-6.1) M/uL Hgb 11.2 L (14.0-18.0) g/dL Hct 32.9 L (42-52) % MCV 95.1 (80-100) fL MCH 32.4 (25-34) pg MCHC 34.0 (32-36) g/dL RDW Std Deviation 44.6 (36.4-46.3) fL RDW Coeff of Timothy 12.8 (11.5-14.5) % Plt Count 166 (130-400) K/uL MPV 9.8 (7.4-10.4) fL Sodium 138 (136-145) mmol/L Potassium 4.2 (3.5-5.1) mmol/L Chloride 101 (98-107) mmol/L Carbon Dioxide 33 H (21-32) mmol/L Anion Gap 4.0 (3-11) BUN 19 H (7-18) mg/dl Creatinine 1.01 (0.6-1.4) mg/dl Est Cr Clr Drug Dosing 48.5 ml/min Est GFR ( Amer) 77.2 Est GFR (Non-Af Amer) 66.6 BUN/Creatinine Ratio 19.3 (10-20) Glucose 98 (70-99) mg/dl Calcium 8.6 (8.5-10.1) mg/dl
[2018-11-22] MEDS: POLYETHYLENE (MIRALAX) 17 GM PACK PO SCH (17:47)
[2018-11-22] MEDS: SENNA 8.6 MG TAB PO SCH (21:01)
[2018-11-22] MEDS: MIRTAZAPINE TAB 15 MG TAB PO SCH (21:02)
[2018-11-23] MEDS: POLYETHYLENE (MIRALAX) 17 GM PACK PO SCH ×3 (00:43→13:28)
--- NOTE | 2018-11-23 07:22 | Anesthesiology Progress Note ---
Date of Service November 23, 2018 Anesthesia Post Procedure Vital Signs Vital Signs: Temp Pulse Pulse Resp BP BP Pulse Ox 11/23/18 06:32 36.7 C 92 H 18 140/80 96 11/23/18 00:20 11/22/18 23:26 37.0 C 80 19 137/75 95 11/22/18 14:50 37 C 80 15 137/75 95 Pulse Ox 11/23/18 06:32 11/23/18 00:20 95 11/22/18 23:26 11/22/18 14:50 Pain Intensity Left Hip: Pain Intensity: 0 Notes Mental Status: alert / awake / arousable and participated in evaluation Patient Amnestic to Procedure: Yes Nausea / Vomiting: adequately controlled Pain: adequately controlled Airway Patency, RR, SpO2: stable & adequate BP & HR: stable & adequate Hydration State: stable & adequate Neuraxial Anesthesia: was administered and sensory block resolved Anesthetic Complications: no major complications apparent and Pt Satisfied with anesthetic care
[2018-11-23] MEDS: ASPIRIN 81 MG ECTAB PO SCH (07:39)
[2018-11-23] MEDS: DOCUSATE SODIUM/SENNA 50/8.6MG TAB PO SCH (07:39)
[2018-11-23] MEDS: VERAPAMIL HCL 240 MG TABCR PO SCH (07:40)
[2018-11-23] MEDS: VENLAFAXINE HCL XR 150 MG CAPXR PO SCH (07:40)
--- NOTE | 2018-11-23 08:24 | Progress Note ---
DATE: 11/23/2018 SUBJECTIVE: An 88-year-old gentleman postop day 3 from a left cemented bipolar hip arthroplasty for fracture. His pain seems to be better today. No new complaints. No chest pain or shortness of breath. Not feeling dizzy or lightheaded. OBJECTIVE: VITAL SIGNS: Temperature 36.7. Vital signs stable. GENERAL: Physical examination shows a pleasant elderly male. He is lying in bed, looks comfortable. I had to wake him this morning. EXTREMITIES: Examination of the left hip reveals leg lengths were equal. Incision is clean, dry and intact. Minimal swelling. He is neurologically intact. ASSESSMENT: An 88-year-old gentleman postop day 3 from a left cemented bipolar hip arthroplasty for fracture. Orthopedically, he is doing well. Pain is improved. PLAN: 1. DVT prophylaxis including thigh-high TEDs, SCDs, and aspirin twice a day. 2. PT/OT. Weight bear as tolerated. Left total hip protocol. 3. Pain control. Doing well with current pain regimen. 4. Disposition: He is orthopedically okay for discharge. I think he is probably okay to go home with some home health, but I believe the family wants him to go to rehab. We will see how this plays out today.
[2018-11-26 08:06] LABS: Vitamin D3,1,25 37 pg/mL
--- NOTE | 2018-11-27 14:36 | Discharge Summary ---
ADMITTING PHYSICIAN AND SURGEON: Pipe Gomez MD ADMITTING DIAGNOSIS: Left displaced femoral neck fracture. SURGERY PERFORMED: Left cemented bipolar hip hemiarthroplasty. SECONDARY DIAGNOSES: Depression, coronary artery disease. CONSULTS: [facility], hospitalist service for medical management. HISTORY AND PHYSICAL EXAMINATION: Well documented in the patient's chart. HOSPITAL COURSE: The patient was admitted on 11/19/2018 with a displaced femoral neck fracture. On 11/20/2018, he underwent hemiarthroplasty. He tolerated the procedure well. There were no complications. He was transferred to the PACU postoperatively and later to the orthopedic floor for further care. He was given Ancef for antibiotic prophylaxis, SKY stockings, SCDs and aspirin for DVT prophylaxis. Hemoglobin, hematocrit and vital signs were monitored during his hospital stay and remained stable. He has remained stable during his hospital stay, did not require any blood transfusions. There were no complications during his hospital stay. By postoperative day 3, he was tolerating a regular diet, pain was controlled with oral pain medicine. He was participating in physical therapy. Postop day 3, he was transferred to a [facility] facility. He was given printed discharge instructions as well as new prescriptions for extra-strength Tylenol, aspirin, and oxycodone. Continue his home medications, continue physical therapy, weightbearing as tolerated, SKY stockings, total hip precautions. Followup in approximately 2 weeks postop or sooner if there are any problems or concerns.
== END 2018-11-23 16:40 | DRG 470 ==
LOC: 3N 14:39 → SUATTDRO 14:39